=== PATIENT | male | born 1985 | race Caucasian/White ===

== ENCOUNTER 2017-10-05 15:37 | Emergency (ER) | payer MEDICAID ==
[~2017-10-05] VITALS: Ht 195.6 cm; Wt 84.4 kg
[2017-10-05 15:50] VITALS: BP 149/93
[2017-10-05] MEDS ORDERED: ACETAMINOPHEN ES 500 MG TABLET ONE (16:17)
[2017-10-05] MEDS: ACETAMINOPHEN ES 500 MG TABLET PO ONE (16:22)
== END 2017-10-05 17:46 | disposition home or self-care (01) ==
LOC: ER 15:39
DX: S60.221A Contusion of right hand, initial encounter (principal); W22.8XXA Striking against or struck by other objects, initial encounter; Y93.89 Activity, other specified; Y92.89 Other specified places as the place of occurrence of the external cause; Y99.8 Other external cause status
CPT/HCPCS: 73130-TC; A4606; Z7610